=== PATIENT | female | born 1935 | race Caucasian/White ===

== ENCOUNTER 2024-06-19 10:42 | Emergency (ER) | payer OTHER, MEDICARE ==
[2024-06-19 11:01] VITALS: BP 157/63; PULSE 75; RESP 18; TEMP 98.6; BMI 29.4
[2024-06-19] MEDS ORDERED: ALBUTEROL SO4 2.5/IPRATROPIUM 0.5 INH SOL 3 ML VIAL.NEB. NEB ONE ×2 (11:22→12:09)
[2024-06-19] MEDS: ALBUTEROL SO4 2.5/IPRATROPIUM 0.5 INH SOL 3 ML VIAL.NEB. NEB ONE ×2 (11:35→12:11)
[2024-06-19 12:02] LABS: HEMOGLOBIN 13.9 G/dL (10.7-15.3); MCH 29.8 pg (25.7-33.7); MCHC 33.1 g/dl (32.0-36.0); MEAN CELL VOLUME 89.9 fl (80-96); MEAN PLT VOLUME 8.6 fl (7.5-11.1); PLATELET COUNT 193.4 10^3/uL (134-434); RBC 4.67 10^6/uL (3.60-5.2); RDW 13.8 % (11.6-15.6); WHITE BLOOD COUNT 6.8 10^3/uL (4.0-10.8)
[2024-06-19 12:05] LABS: PLATELET ESTIMATE ADEQUATE
[2024-06-19 12:10] LABS: ALBUMIN 4.2 g/dl (3.4-5.0); BILIRUBIN,TOTAL 0.7 mg/dl (0.2-1); CALCIUM 9.5 mg/dl (8.5-10.1); CREATININE 0.6 mg/dl (0.6-1.3); POTASSIUM 3.7 mmol/L (3.5-5.1); TOT PROT 6.5 g/dl (6.4-8.2)
== END 2024-06-19 14:13 | disposition home or self-care (01) ==
LOC: FER 10:42
PROC: 3E0F7GC Introduction of Other Therapeutic Substance into Respiratory Tract, Via Natural or Artificial Opening (ICD-10-PCS; principal; 2024-06-19)
PROC: 3E0F7GC Introduction of Other Therapeutic Substance into Respiratory Tract, Via Natural or Artificial Opening (ICD-10-PCS; 2024-06-19)
DX: R05.8 Other specified cough (principal); R06.02 Shortness of breath; G47.00 Insomnia, unspecified; Z20.822 Contact with and (suspected) exposure to COVID-19
CPT/HCPCS: 0241U-QW; 36415; 71045-TC-FY; 80053; 84484; 85027; 93005; 99285-25